=== PATIENT | male | born 1975 ===

== ENCOUNTER 2016-12-25 19:24 | Emergency (ER) | payer BC ==
--- NOTE | 2016-12-25 20:41 | EDM.PDOC ---
ED HPI GENERAL MEDICAL PROBLEM - General Chief Complaint: Lower Extremity Injury/Pain Stated Complaint: PAIN KNEES Time Seen by Provider: 12/25/16 20:36 - History of Present Illness INITIAL COMMENTS - FREE TEXT/NARRATIVE: HISTORY AND PHYSICAL: History of present illness: Patient is a 41-year-old male presents with concern of bilateral knee pain times several months he's here now looking for referral sincerely now was ensured. He denies any trauma he states it's worse with bending denies fever chills nausea vomiting or other complaints Review of systems: As per history of present illness and below otherwise all systems reviewed and negative. Past medical history: As per history of present illness and as reviewed below otherwise noncontributory. Surgical history: As per history of present illness and as reviewed below otherwise noncontributory. Social history: No reported history of drug or alcohol abuse. Family history: As per history of present illness and as reviewed below otherwise noncontributory. Physical exam: HEENT: Atraumatic, normocephalic, pupils reactive, negative for conjunctival pallor or scleral icterus, mucous membranes moist, throat clear, neck supple, nontender, trachea midline. Lungs: Clear to auscultation, breath sounds equal bilaterally, chest nontender. Heart: S1S2, regular, negative for clicks, rubs, or JVD. Abdomen: Soft, nondistended, nontender. Negative for masses or hepatosplenomegaly. Negative for costovertebral tenderness. Pelvis: Stable nontender. Genitourinary: Deferred. Rectal: Deferred. Extremities: Atraumatic, negative for cords or calf pain. Neurovascular unremarkable. Neuro: Awake, alert, oriented. Cranial nerves II through XII unremarkable. Cerebellum unremarkable. Motor and sensory unremarkable throughout. Exam nonfocal. Diagnostics: X-ray right/left knee Therapeutics: None Impression: #1 chronic bilateral knee pain Definitive disposition and diagnosis as appropriate pending reevaluation and review of above. Review of Systems - Review of Systems Review Of Systems: ROS reveals no pertinent complaints other than HPI. ED EXAM, GENERAL - Physical Exam Exam: See Below (See dictation) Course - Orders/Labs/Meds Orders: Active Orders 24 hr Category Date Time Status Knee 3V Lt [CR] Stat Exams 12/25/16 20:39 Ordered Knee 3V Rt [CR] Stat Exams 12/25/16 20:39 Ordered Departure - Departure Time of Disposition: 20:40 Disposition: Home, Self-Care 01 Condition: Good Clinical Impression: Chronic knee pain - Discharge Information Referrals: PCP,None [Primary Care Provider] - Additional Instructions: The following information is given to patients seen in the emergency department who are being discharged to home. This information is to outline your options for follow-up care. We provide all patients seen in our emergency department with a follow-up referral. The need for follow-up, as well as the timing and circumstances, are variable depending upon the specifics of your emergency department visit. If you don't have a primary care physician on staff, we will provide you with a referral. We always advise you to contact your personal physician following an emergency department visit to inform them of the circumstance of the visit and for follow-up with them and/or the need for any referrals to a consulting specialist. The emergency department will also refer you to a specialist when appropriate. This referral assures that you have the opportunity for followup care with a specialist. All of these measure are taken in an effort to provide you with optimal care, which includes your followup. Under all circumstances we always encourage you to contact your private physician who remains a resource for coordinating your care. When calling for followup care, please make the office aware that this follow-up is from your recent emergency room visit. If for any reason you are refused follow-up, please contact the [facility] emergency department at and asked to speak to the emergency department charge nurse. [facility] Professional [address], [address] [place] [address] Motrin/Tylenol as directed Anum schedule appointment with orthopedic clinic above return as needed as discussed - My Orders Last 24 Hours: My Active Orders 12/25/16 20:39 Knee 3V Lt [CR] Stat Knee 3V Rt [CR] Stat - Assessment/Plan Last 24 Hours: My Active Orders 12/25/16 20:39 Knee 3V Lt [CR] Stat Knee 3V Rt [CR] Stat
[2016-12-25 20:47] VITALS: BP 121/77
--- NOTE | 2016-12-26 16:03 | CR ---
EXAM DATE: 12/25/16 PATIENT'S AGE: 41 Patient: KLEVER MATA Facility: [place], [place] Site . Site : [id number] Study: XRay Knee Bilateral [id number]/5/2017 9:17:36 PM Ordering Physician: Contreras Quiroz Final Report: Indication: Chronic pain Technique: Four views of each knee Comparison: None available Findings: Bones: No acute fracture or dislocation. A corticated ovoid ossific structure adjacent to the left tibial tuberosity compatible with old Taras-Schlatter`s disease. Joint spaces: Preserved. Small suprapatellar effusions suspected. Soft tissues: Apparent soft tissue prominence in the region of the patellar tendons, left greater than right. 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 Soft tissue prominence along the patellar tendons, left greater than right. Apparent small joint effusions. Dictated by Frank Farrar MD @ 12/25/2016 9:48:21 PM Dictated by: Frank Farrar MD @ 12/25/2016 21:50:50 (Electronic Signature) Report Signed by Proxy. [email or web address]
== END 2016-12-25 21:52 | disposition home or self-care (01) ==
LOC: MW.ED 19:24
DX: M25.562 Pain in left knee (principal); M25.561 Pain in right knee; G89.29 Other chronic pain
CPT/HCPCS: 735642650; 73564-50; 99282; 99283